=== PATIENT | female | born 1980 | race Caucasian/White ===

== ENCOUNTER 2017-11-20 22:32 | Emergency (ER) | payer OTHER | END 2017-11-20 23:06 | disposition home or self-care (01) | LOC: EDH 22:32 | DX: L01.00 Impetigo, unspecified (principal); Z88.0 Allergy status to penicillin; Z79.899 Other long term (current) drug therapy; Z98.890 Other specified postprocedural states ==

== ENCOUNTER 2020-06-15 21:23 | Emergency (ER) | payer BC, OTHER ==
[2020-06-15 22:00] LABS: BASOPHILS % (AUTO) 0.3 % (0.0-5.0); EOSINOPHILS % (AUTO) 1.2 % (0.0-8.0); HEMATOCRIT 37.5 % (36-48); LYMPHOCYTES % (AUTO) 25.2 % (21.0-51.0); MEAN CORPUSCULAR HEMOGLOBIN 32.3 pg (27.0-33.0); MEAN CORPUSCULAR HGB CONC 34.4 g/dL (32.0-36.0); MEAN CORPUSCULAR VOLUME 93.8 fL (79-99); NEUTROPHILS % (AUTO) 67.2 % (40.0-77.0); PLATELET COUNT (AUTO) 305 K/uL (130-400); RED CELL DISTRIBUTION WIDTH 12.4 % (11.0-15.5); WHITE BLOOD COUNT (AUTO) 6.7 K/uL (4.8-10.8)
[2020-06-15 22:09] LABS: CREATININE 0.6 mg/dL (0.5-1.5); POTASSIUM 3.8 mmol/L (3.5-5.1)
== END 2020-06-15 22:56 | disposition home or self-care (01) ==
LOC: EDH 21:23
DX: F43.0 Acute stress reaction (principal); R20.2 Paresthesia of skin; Z88.0 Allergy status to penicillin
CPT/HCPCS: 36415; 71046; 80048; 84484; 85025; 93005

== ENCOUNTER 2021-12-17 05:01 | Emergency (ER) | payer BC ==
[~2021-12-17] VITALS: Ht 160 cm; Wt 68.0 kg
[2021-12-17] MEDS ORDERED: ACETAMINOPHEN 500 MG TABLET ONE (05:25)
[2021-12-17] MEDS ORDERED: ACETAMINOPHEN 500 MG TABLET PO ONE (05:30)
[2021-12-17] MEDS ORDERED: CEPH500B PO (06:10)
[2021-12-17 06:17] VITALS: BP 116/70
== END 2021-12-17 06:16 | disposition home or self-care (01) ==
LOC: EDH 05:01
DX: J02.0 Streptococcal pharyngitis (principal); Z20.822 Contact with and (suspected) exposure to COVID-19; G43.909 Migraine, unspecified, not intractable, without status migrainosus; Z88.0 Allergy status to penicillin
CPT/HCPCS: 87635; 87804 ×2; 87880; 99283; C9803